=== PATIENT | male | born 1975 | race African-American/Black ===

== ENCOUNTER 2022-01-11 07:58 | Emergency (ER) | payer OTHER ==
[~2022-01-11] VITALS: Ht 170.2 cm; Wt 88.0 kg
[2022-01-11 08:21] VITALS: BP 163/112
[2022-01-11] MEDS ORDERED: LIDOcaine 1% 30ml preserv. free vial IJ ONE (10:15)
--- NOTE | 2022-01-11 11:25 | NUR ---
I agree with Evi LAKE's general assessment.
== END 2022-01-11 11:31 | disposition home or self-care (01) ==
LOC: ER 07:58
DX: S61.412A Laceration without foreign body of left hand, initial encounter (principal); X58.XXXA Exposure to other specified factors, initial encounter; Y93.89 Activity, other specified; Y92.89 Other specified places as the place of occurrence of the external cause; Y99.8 Other external cause status
CPT/HCPCS: 12002; 99282; A6449

== ENCOUNTER 2022-01-25 12:03 | Emergency (ER) | payer OTHER ==
[~2022-01-25] VITALS: Ht 171.4 cm; Wt 87.7 kg
[2022-01-25 15:02] VITALS: BP 145/106
== END 2022-01-25 15:04 | disposition home or self-care (01) ==
LOC: ER 12:03
DX: S61.412D Laceration without foreign body of left hand, subsequent encounter (principal); X58.XXXD Exposure to other specified factors, subsequent encounter
CPT/HCPCS: 99281; A6449